=== PATIENT | male | born 1955 | race Caucasian/White ===

== ENCOUNTER 2024-11-16 21:18 | Emergency (ER) | payer BC, SELFPAY ==
[2024-11-16 21:18] VITALS: BP 172/88
[2024-11-16 21:37] VITALS: BMI 26.9
[2024-11-16] MEDS: ADACEL 0.5 ML IM (23:04)
--- NOTE | 2024-11-16 23:19 | ED.SKININJ ---
HPI-Injury
General
Chief Complaint: Skin Surface Trauma
Source: patient
Exam Limitations: none
Time Seen by Provider: 11/16/24 21:59
Nursing documentation reviewed up to this point in time: agreed with
History of Present Illness-Injury
Is this injury a work related problem?: No
Is pt an associate of [facility]?: No
Initial Injury comments:
Patient states he tripped and fell backwards. Cut right palmar hand on tile spacer. Sustained abrasion to back form tile spacer. Incident occurred tonight.
Past History
Past History
ED Past Medical History: None
ED Past Surgical History: Appendectomy
Social History
Tobacco: Smoker
Alcohol: Occasional
Drug: None
Personal: Single
Living: with roommate
Employment: Employed
Family History
Family History: Early CAD
Review of Systems
Review of Systems
Allergies reviewed?: Yes
All Other Systems: ROS reviewed and negative except as documented in HPI and ROS
Constitutional: Reports no symptoms
Respiratory: Reports no symptoms
Cardiac: Reports no symptoms
ABD/GI: Reports no symptoms
Musculoskeletal: Reports no symptoms
Skin: Reports other (laceration right palmar hand)
Neurological: Reports no symptoms
Psychiatric: Reports no symptoms
Skin Exam
Laceration
Right Palmar Hand:
Length in cm: 3
Orientation: stellate
Type of Laceration: simple
Any active bleeding?: low grade venous oozing
Distal skin color and temperature: normal-warm & good color
Normal distal neurovascular exam: Yes
Range of motion: full
Phy Exam
General Physical Exam
General Presentation: well appearing and no apparent distress
General age: appears stated age
General Skin: warm and dry
General Habitus: normal
General Mental: alert
Musculoskeletal Exam
Musculoskeletal Exam: full ROM and neuro vasc intact
Skin Exam
Skin Exam: normal color, warm/dry and no rash
Psychiatric Exam
Psychiatric Exam: normal mood/affect
Course
Orders/Labs/Results
Orders:
Orders
11/16/24 22:32
Tetanus/Diphth/Acelpertussis [Adacel] 0.5 ml IM .ONCE ONE
CR Hand - Right Min 3 Views Urgent
Reason For Exam: trauma
Vital Signs
Initial and Last Documented VS:
Initial Vital Signs
Temp Pulse Resp BP Pulse Ox
97.6 F 74 18 172/88 100
11/16/24 21:18 11/16/24 21:18 11/16/24 21:18 11/16/24 21:18 11/16/24 21:18
Last Documented Vital Signs
Temp Pulse Resp BP Pulse Ox
97.6 F 74 18 172/88 100
11/16/24 21:18 11/16/24 23:45 11/16/24 21:18 11/16/24 21:18 11/16/24 23:45
Procedures
Laceration Closure
Right Palmar Hand:
Status of Wound: clean
Description of Wound Edges: sharp
Preparation: cleaned with Betadine
Anesthesia: 1% Lidocaine
Revision/Debridement: routine- no revision
Wound exploration: explored to base- no FB and no tendon involvement
Type of Closure: single layer closure
Skin Closure Material: 5-0 prolene
*Radiology
Radiology exam reviewed: radiology read reviewed
*Pulse Oximetry
SaO2: 100
Patient hypoxic: no
*Critical Care Note
Total Time (30-74mins, 75-104mins- exclusive of procedures): Not Applicable
ED Attending Note
-
Portions of this chart may have been created with voice recognition software.� Occasional wrong word or��sound alike� substitutions may have occurred due to the inherent limitations of voice recognition software.
Discharge Plan
Departure
Patient Disposition: Home (Routine Discharge)
Date of Disposition: 11/16/24
Time of Disposition: 23:31
Patient with high blood pressure during this ER visit?: No
Condition: Good
Covid-19: Not Applicable
Discharge Problem:
Hand laceration
Instructions: Laceration Repair With Stitches (DC)
Prescriptions:
No Action
metoprolol tartrate 50 MG tablet
50 mg PO BID
lisinopril 2.5 MG tablet
2.5 mg PO DAILY
ezetimibe 10 MG tablet
10 mg PO DAILY
rosuvastatin [Crestor] 40 MG tablet
40 mg PO DAILY
aspirin 81 MG tablet,chewable
81 mg PO DAILY Qty: 1 0RF
erythromycin 5 mg/gram (0.5 %) ointment
1 applic ophthalmic (eye) TID 7 Days Qty: 3.5 0RF
amoxicillin-pot clavulanate 875-125 mg tablet
1 tab PO BID 5 Days Qty: 10 0RF
Referrals:
Nora Porter DO [Family Provider, Family Practice]
Referral Note: Sutures can be removed in 7-10 days
Interventions
Interventions:
*Risk Screen - Suicide Last Done: 11/16/24 21:18
*General Assessment Last Done: 11/16/24 21:37
*Neglect/Abuse Screening Last Done: 11/16/24 21:18
*ED- Fall Risk Assessment Last Done: 11/16/24 21:37
*ED COVID-19 Vaccine History Last Done: 11/16/24 21:37
*Nursing Disposition Last Done: 11/16/24 23:45
ED-Skin Assessment Last Done: 11/16/24 21:37
Discharge Date and Time
Discharge Date/Time: 11/16/24 23:47
Print Language: IRISH
== END 2024-11-16 23:47 | disposition home or self-care (01) ==
LOC: EMR 21:18
PROVIDERS: EMERGENCY PHYSICIAN Emergency Medicine; FAMILY PHYSICIAN Family Medicine
DX: S61.411A Laceration without foreign body of right hand, initial encounter (principal); F17.200 Nicotine dependence, unspecified, uncomplicated; Z23 Encounter for immunization; Z79.82 Long term (current) use of aspirin; W45.8XXA Other foreign body or object entering through skin, initial encounter; W22.8XXA Striking against or struck by other objects, initial encounter; W01.198A Fall on same level from slipping, tripping and stumbling with subsequent striking against other object, initial encounter; Y92.009 Unspecified place in unspecified non-institutional (private) residence as the place of occurrence of the external cause
CPT/HCPCS: 99283; 12002; 90471; 73130; 90715